=== PATIENT | female | born 1930 | race Caucasian/White ===

== ENCOUNTER 2016-08-26 18:16 | Observation (INO) | payer MEDICARE, OTHER ==
[~2016-08-26] VITALS: Ht 165.1 cm; Wt 75.0 kg
[2016-08-26 18:19] VITALS: BP 172/131; PULSE 89; RESP 18; TEMP 98.9; O2SAT 96
[2016-08-26 18:22] VITALS: BP 172/131; PULSE 89; RESP 18; O2SAT 96
[2016-08-26 18:25] VITALS: BP 176/77; PULSE 87; RESP 18; O2SAT 96; O2SAT 97
[2016-08-26] MEDS ORDERED: SODIUM CHLORIDE 0.9% FLUSH 5 ML FLUSH IVF PRN ×2 (18:30→21:00)
--- NOTE | 2016-08-26 18:49 | PD ---
HPI Chief Complaint: Chest Pain Time Seen by Provider: 18:20 Travel History International Travel<30 days: No Contact w/Intl Traveler<30days: No Traveled to known affect area: No History of Present Illness HPI 86yo F with PMH of HLD, dementia presents to the ED with c/o left chest pain today. Pain is left sided, constant and nonradiating. States it hurts more when you press on it. Denies any sob, n/v, abdominal pain, focal weakness or numbness. Pt is AAOx2 and denies any trauma. No signs of trauma. PFSH Past Medical History Alzheimer's Disease: Yes ?: Not Social History Alcohol Use: No Tobacco Use: No Substance Use: No Allergies-Medications (Allergen,Severity, Reaction): Coded Allergies: No Known Allergies (Unverified , 08/26/16) Reported Meds & Prescriptions Reported Meds & Active Scripts Active Reported Donepezil 10 Mg Tab 10 Mg PO HS Atorvastatin (Atorvastatin Calcium) 80 Mg Tab 80 Mg PO HS Memantine 10 Mg Tab 10 Mg PO BID Citalopram (Citalopram Hydrobromide) 20 Mg Tab 20 Mg PO DAILY Review of Systems Except as stated in HPI: all other systems reviewed are Neg Physical Exam Narrative GENERAL: 86yo F not in distress. SKIN: Warm and dry. HEAD: Atraumatic. Normocephalic. EYES: Pupils equal and round. No scleral icterus. No injection or drainage. ENT: No nasal bleeding or discharge. Mucous membranes pink and moist. NECK: Trachea midline. No JVD. CARDIOVASCULAR: Regular rate and rhythm. No murmur appreciated. RESPIRATORY: No accessory muscle use. Clear to auscultation. Breath sounds equal bilaterally. GASTROINTESTINAL: Abdomen soft, non-tender, nondistended. MUSCULOSKELETAL: No obvious deformities. No clubbing. No cyanosis. No edema. NEUROLOGICAL: Awake and alert. AAOx2. No obvious cranial nerve deficits. Motor grossly within normal limits. Normal speech. Data Data Last Documented VS Vital Signs Date Time Temp Pulse Resp B/P Pulse Ox O2 Delivery O2 Flow Rate FiO2 08/26/16 18:25 87 18 176/77 96 Room Air 08/26/16 18:19 98.9 Orders Basic Metabolic Panel (Bmp) (08/26/16 18:24) Ckmb (Isoenzyme) Profile (08/26/16 18:24) Complete Blood Count With Diff (08/26/16 18:24) Magnesium (Mg) (08/26/16 18:24) Prothrombin Time / Inr (Pt) (08/26/16 18:24) Act Partial Throm Time (Ptt) (08/26/16 18:24) Troponin I (08/26/16 18:24) Chest, Single Ap (08/26/16 18:24) Ecg Monitoring (08/26/16 18:24) Bilateral Bp Monitoring (08/26/16 18:24) Iv Access Insert/Monitor (08/26/16 18:24) Oximetry (08/26/16 18:24) Oxygen Administration (08/26/16 18:24) Sodium Chloride 0.9% Flush (Ns Flush) (08/26/16 18:30) Activity Bed Rest With Brp (08/26/16 20:55) Vital Signs (Adult) Q4H (08/26/16 20:55) Cardiac Rhythm .As Directed (08/26/16 20:55) ^ Notify Dr: Other .PRN (08/26/16 20:55) ^ Notify DrSravan Parameters (08/26/16 20:55) Resp Oxygen Nasal Cannula (08/26/16 ) Ckmb (Isoenzyme) Profile (08/26/16 20:55) Ckmb (Isoenzyme) Profile (08/26/16 23:55) Troponin I (08/26/16 20:55) Troponin I (08/26/16 23:55) Electrocardiogram (08/26/16 20:55) Electrocardiogram (08/26/16 23:55) ^ Obtain (08/26/16 20:55) Sodium Chloride 0.9% Flush (Ns Flush) (08/26/16 21:00) Sodium Chloride 0.9% Flush (Ns Flush) (08/26/16 21:00) [employer] Teacher / Telemetry [email or web address] (08/26/16 20:55) Admit Order (Ed Use Only) (08/26/16 20:55) Labs Laboratory Tests Test 08/26/16 18:35 White Blood Count 8.7 TH/MM3 Red Blood Count 4.36 MIL/MM3 Hemoglobin 13.2 GM/DL Hematocrit 39.7 % Mean Corpuscular Volume 91.2 FL Mean Corpuscular Hemoglobin 30.3 PG Mean Corpuscular Hemoglobin 33.2 % Concent Red Cell Distribution Width 13.3 % Platelet Count 191 TH/MM3 Mean Platelet Volume 9.5 FL Neutrophils (%) (Auto) 66.2 % Lymphocytes (%) (Auto) 26.0 % Monocytes (%) (Auto) 5.9 % Eosinophils (%) (Auto) 1.4 % Basophils (%) (Auto) 0.5 % Neutrophils # (Auto) 5.8 TH/MM3 Lymphocytes # (Auto) 2.3 TH/MM3 Monocytes # (Auto) 0.5 TH/MM3 Eosinophils # (Auto) 0.1 TH/MM3 Basophils # (Auto) 0.0 TH/MM3 CBC Comment DIFF FINAL Differential Comment Prothrombin Time 9.8 SEC Prothromb Time International 0.9 RATIO Ratio Activated Partial 26.4 SEC Thromboplast Time Sodium Level 143 MEQ/L Potassium Level 3.9 MEQ/L Chloride Level 107 MEQ/L Carbon Dioxide Level 30.0 MEQ/L Anion Gap 6 MEQ/L Blood Urea Nitrogen 17 MG/DL Creatinine 1.00 MG/DL Estimat Glomerular Filtration 53 ML/MIN Rate Random Glucose 107 MG/DL Calcium Level 8.8 MG/DL Magnesium Level 1.9 MG/DL Total Creatine Kinase 81 U/L Troponin I LESS THAN 0.02 NG/ML MDM Medical Decision Making Medical Screen Exam Complete: Yes Emergency Medical Condition: Yes Interpretation(s) EKG: NSR 78bpm. Normal axis. No ST segment elevation or depression. Laboratory Tests Test 08/26/16 18:35 White Blood Count 8.7 TH/MM3 (4.0-11.0) Red Blood Count 4.36 MIL/MM3 (4.00-5.30) Hemoglobin 13.2 GM/DL (11.6-15.3) Hematocrit 39.7 % (35.0-46.0) Mean Corpuscular Volume 91.2 FL (80.0-100.0) Mean Corpuscular Hemoglobin 30.3 PG (27.0-34.0) Mean Corpuscular Hemoglobin 33.2 % Concent (32.0-36.0) Red Cell Distribution Width 13.3 % (11.6-17.2) Platelet Count 191 TH/MM3 (150-450) Mean Platelet Volume 9.5 FL (7.0-11.0) Neutrophils (%) (Auto) 66.2 % (16.0-70.0) Lymphocytes (%) (Auto) 26.0 % (9.0-44.0) Monocytes (%) (Auto) 5.9 % (0.0-8.0) Eosinophils (%) (Auto) 1.4 % (0.0-4.0) Basophils (%) (Auto) 0.5 % (0.0-2.0) Neutrophils # (Auto) 5.8 TH/MM3 (1.8-7.7) Lymphocytes # (Auto) 2.3 TH/MM3 (1.0-4.8) Monocytes # (Auto) 0.5 TH/MM3 (0-0.9) Eosinophils # (Auto) 0.1 TH/MM3 (0-0.4) Basophils # (Auto) 0.0 TH/MM3 (0-0.2) CBC Comment DIFF FINAL Differential Comment Prothrombin Time 9.8 SEC (9.8-11.6) Prothromb Time International 0.9 RATIO Ratio Activated Partial 26.4 SEC Thromboplast Time (24.3-30.1) Sodium Level 143 MEQ/L (136-145) Potassium Level 3.9 MEQ/L (3.5-5.1) Chloride Level 107 MEQ/L (98-107) Carbon Dioxide Level 30.0 MEQ/L (21.0-32.0) Anion Gap 6 MEQ/L (5-15) Blood Urea Nitrogen 17 MG/DL (7-18) Creatinine 1.00 MG/DL (0.50-1.00) Estimat Glomerular Filtration 53 ML/MIN (>89) Rate Random Glucose 107 MG/DL (74-106) Calcium Level 8.8 MG/DL (8.5-10.1) Magnesium Level 1.9 MG/DL (1.5-2.5) Total Creatine Kinase 81 U/L (26-192) Troponin I LESS THAN 0.02 NG/ML (0.02-0.05) Last Impressions Chest X-Ray 08/26/16 2145 Signed Impressions: Service Date/Time: Friday, August 26, 2016 19:14 - CONCLUSION: No acute disease. Jed Serrato MD Differential Diagnosis Atypical chest pain vs. ACS vs. pneumonia Narrative Course 86yo F with c/o left sided chest pain. As per her son who is the power of trademark attorney, she has not had similar chest pain or recent chest pain work up before. Pt does have dementia and is AAox2. She is at baseline mental status as per son. Although chest pain sounds atypical, pt is an elderly woman with HLD and has history of dementia so ACS may present in an atypical way. Labs reviewed, no leukocytosis. Troponin negative. CXR showed no acute disease. Will admit to chest pain center for serial EKG and cardiac enzymes. Diagnosis Primary Impression: Chest pain Qualified Code: R07.9 - Chest pain, unspecified type Admitting Information Admitting Physician Requests: Observation Angella Lee DO Aug 26, 2016 18:49 Angella Lee DO Aug 26, 2016 18:49
[2016-08-26 19:13] LABS: AUTOMATED NEUTROPHIL # 5.8 TH/MM3 (1.8-7.7); BASOPHIL % 0.5 % (0.0-2.0); EOSINOPHIL # 0.1 TH/MM3 (0-0.4); EOSINOPHIL % 1.4 % (0.0-4.0); HEMATOCRIT 39.7 % (35.0-46.0); HEMO FLAGS DIFF FINAL; LYMPHOCYTE # 2.3 TH/MM3 (1.0-4.8); MEAN CELL VOLUME 91.2 FL (80.0-100.0); MEAN CORPUSCULAR HEMOGLOBIN 30.3 PG (27.0-34.0); MEAN CORPUSCULAR HGB CONC 33.2 % (32.0-36.0); MONO % 5.9 % (0.0-8.0); NEUT % 66.2 % (16.0-70.0); PLATELET COUNT 191 TH/MM3 (150-450); RED BLOOD COUNT 4.36 MIL/MM3 (4.00-5.30); RED CELL DISTRIBUTION WIDTH 13.3 % (11.6-17.2); WHITE BLOOD COUNT 8.7 TH/MM3 (4.0-11.0)
[2016-08-26 19:16] LABS: APTT (PATIENT) 26.4 SEC (24.3-30.1); INTERNATIONAL NORMALIZED RATIO 0.9 RATIO; PROTHROMBIN TIME - PATIENT 9.8 SEC (9.8-11.6)
[2016-08-26] MEDS ORDERED: DONE10TA7 PO (19:25)
[2016-08-26] MEDS ORDERED: MEMA1TAB2 PO (19:25)
[2016-08-26] MEDS ORDERED: CITA20TA4 PO (19:25)
[2016-08-26] MEDS ORDERED: ATOR1TAB18 PO (19:25)
[2016-08-26 19:31] LABS: ANION GAP 6 MEQ/L (5-15); BLOOD UREA NITROGEN 17 MG/DL (7-18); CHLORIDE 107 MEQ/L (98-107); GLOMERULAR FILTRATION RATE 53 ML/MIN (>89); MAGNESIUM 1.9 MG/DL (1.5-2.5); POTASSIUM 3.9 MEQ/L (3.5-5.1); SODIUM (NA) 143 MEQ/L (136-145)
[2016-08-26 19:37] LABS: CREATINE KINASE 81 U/L (26-192)
--- NOTE | 2016-08-26 19:59 | RADRPT ---
EXAM DATE/TIME: 08/26/2016 19:14 [facility] COMPARISON: No previous studies available for comparison. INDICATIONS : Chest pain. MEDICAL HISTORY : None. SURGICAL HISTORY : None. ENCOUNTER: Initial ACUITY: 1 day PAIN SCORE: 5/10 LOCATION: Bilateral chest FINDINGS: A single view of the chest demonstrates the lungs to be symmetrically aerated without evidence of mas s, infiltrate or effusion. The cardiomediastinal contours are unremarkable. Atherosclerotic calcific ations are present in the aorta. Osseous structures are intact. CONCLUSION: No acute disease. Jed Serrato MD on August 26, 2016 at 19:58 Board Certified Radiologist. This report was verified electronically.
[2016-08-26 22:13] VITALS: O2SAT 97
[2016-08-26] MEDS: SODIUM CHLORIDE 0.9% FLUSH 5 ML FLUSH IVF SCH (22:25)
[2016-08-26 23:59] VITALS: BP 171/72; PULSE 72; RESP 20; O2SAT 100
[2016-08-27] VITALS (7 sets, daily range): BP systolic 145–180; BP diastolic 65–79; PULSE 58–80; RESP 18–20; TEMP 98–99.2; O2SAT 92–98
[2016-08-27] MEDS ORDERED: ASPIRIN 325 MG TAB PO ONE (00:30)
[2016-08-27 00:43] LABS: CREATINE KINASE 74 U/L (26-192)
[2016-08-27 03:54] LABS: CREATINE KINASE 77 U/L (26-192)
[2016-08-27] MEDS: SODIUM CHLORIDE 0.9% FLUSH 5 ML FLUSH IVF SCH (09:00)
[2016-08-27] MEDS ORDERED: amLODIPine BESYLATE 5 MG TAB PO SCH (09:00)
--- NOTE | 2016-08-27 10:49 | HHI.HP ---
HPI Primary Care Physician Octavio Jin MD Chief Complaint Chest pain History of Present Illness This is an 86-year-old female that presents to ED complaining of chest discomfort. She states it occurred yesterday while at rest. She cannot recall having symptoms like this before. Does not really recall how long it lasted but it is not at this time. No shortness breath nausea or vomiting. No diaphoresis. Review of Systems General: Patient denies fevers, chills recent, and recent travel HEENT: Patient denies headache, sore throat, difficulty swallowing. Cardiovascular: Has the chest discomfort as mentioned above. Denies sensation of heart beating rapidly or irregularly. No syncope. Denies diaphoresis. Respiratory: Denies shortness of breath or inspirational chest discomfort. Denies coughing wheezing or hemoptysis. GI: Patient denies nausea, vomiting, diarrhea, abdominal pain, bloody stools. Musculoskeletal: Patient denies joint pain or edema. Denies calf pain or edema. Neurovascular: Patient denies numbness, tingling, weakness in extremities. Denies headache. Endocrine: Denies polyuria and polydipsia. Hematologic: Denies easy bruising. Skin: Denies rash or itching. Past Family Social History Allergies: Coded Allergies: No Known Allergies (Unverified , 08/26/16) Past Medical History Hyperlipidemia, hypertension, dementia. Denies diabetes and known CAD. Past Surgical History Noncontributory. Reported Medications Reported Meds & Active Scripts Active Reported Donepezil 10 Mg Tab 10 Mg PO HS Atorvastatin (Atorvastatin Calcium) 80 Mg Tab 80 Mg PO HS Memantine 10 Mg Tab 10 Mg PO BID Citalopram (Citalopram Hydrobromide) 20 Mg Tab 20 Mg PO DAILY Active Ordered Medications Current Medications Medications (Trade) Dose Ordered Sig/Stefano Route Start Time Stop Time Status Last Admin (NS Flush) 2 ml UNSCH PRN IVF 08/26/16 21:00 (NS Flush) 2 ml BID IVF 08/26/16 21:00 08/26/16 22:25 (Norvasc) 5 mg DAILY PO 08/27/16 09:00 Family History Patient is unaware of coronary disease in her family. Social History Patient does not smoke, drink alcohol, or use illicit drugs. Physical Exam Vital Signs Vital Signs Date Time Temp Pulse Resp B/P Pulse Ox O2 Delivery O2 Flow Rate FiO2 08/27/16 07:28 98.0 80 20 153/67 97 08/27/16 04:00 172/76 08/27/16 03:19 98.0 70 18 180/79 97 08/27/16 02:16 58 08/26/16 23:59 72 20 171/72 100 08/26/16 22:13 97 08/26/16 18:25 87 18 176/77 96 Room Air 08/26/16 18:25 97 Room Air 08/26/16 18:25 97 Room Air 08/26/16 18:22 89 18 172/131 96 Room Air 08/26/16 18:19 98.9 89 18 172/131 96 Physical Exam GENERAL: This is a well-nourished, well-developed patient, in no apparent distress. Patient speaks in clear complete sentences. Patient is pleasant. HEENT: Head is atraumatic and normocephalic. Neck is supple without lymphadenopathy and trachea is midline. No JVD or carotid bruits. CARDIOVASCULAR: Grade 2 systolic murmur left sternal border. Regular rate and rhythm without gallops, or rubs. RESPIRATORY: Clear to auscultation. Breath sounds equal bilaterally. No wheezes , rales, or rhonchi. Chest wall is nontender. No use of accessory muscles. GASTROINTESTINAL: Abdomen is nontender, nondistended. Abdomen soft. No obvious pulsatile mass or bruit. No CVA tenderness. Strong femoral pulses bilaterally. Normal bowel sounds in all quadrants. MUSCULOSKELETAL: Patient is moving upper and lower extremities freely. No calf tenderness or edema, no Homans sign. Strong pulses in upper and lower extremities. NEUROLOGICAL: Patient is alert and oriented. Cranial nerves 2-12 are grossly intact. No focal deficits and speech is clear. SKIN: No rash and turgor is normal. Laboratory Laboratory Tests Test 08/26/16 08/26/16 08/27/16 18:35 23:50 03:00 White Blood Count 8.7 Red Blood Count 4.36 Hemoglobin 13.2 Hematocrit 39.7 Mean Corpuscular Volume 91.2 Mean Corpuscular Hemoglobin 30.3 Mean Corpuscular Hemoglobin 33.2 Concent Red Cell Distribution Width 13.3 Platelet Count 191 Mean Platelet Volume 9.5 Neutrophils (%) (Auto) 66.2 Lymphocytes (%) (Auto) 26.0 Monocytes (%) (Auto) 5.9 Eosinophils (%) (Auto) 1.4 Basophils (%) (Auto) 0.5 Neutrophils # (Auto) 5.8 Lymphocytes # (Auto) 2.3 Monocytes # (Auto) 0.5 Eosinophils # (Auto) 0.1 Basophils # (Auto) 0.0 CBC Comment DIFF FINAL Differential Comment Prothrombin Time 9.8 Prothromb Time International 0.9 Ratio Activated Partial 26.4 Thromboplast Time Sodium Level 143 Potassium Level 3.9 Chloride Level 107 Carbon Dioxide Level 30.0 Anion Gap 6 Blood Urea Nitrogen 17 Creatinine 1.00 Estimat Glomerular Filtration 53 Rate Random Glucose 107 Calcium Level 8.8 Magnesium Level 1.9 Total Creatine Kinase 81 74 77 Troponin I LESS THAN 0.02 LESS THAN 0.02 LESS THAN 0.02 Result Diagram: 08/26/16183408/26/161834 Imaging Last 24 hours Impressions Chest X-Ray 08/26/164 Signed Impressions: Service Date/Time: Friday, August 26, 2016 19:14 - CONCLUSION: No acute disease. Jed Serrato MD Course EKGs have sinus rhythm without significant ST segment depressions or elevations. Assessment and Plan Assessment and Plan * Chest pain: Patient had serial cardiac enzymes and EKGs for ruling out purposes. She has been seen by Dr. Linder cardiology and the chest pain center and will undergo a Lexiscan. She will likely be discharged home if her stress test were to be nonischemic. * Hypertension: Patient is not believes she has been taking medications recently. She was hypertensive. We'll start the patient on amlodipine. * Hyperlipidemia: Continue current medication. * Dementia: Continue current medication. Patient is stable at this time. She is agreeable to this plan. Waqar Blank Aug 27, 2016 10:49
[2016-08-27] MEDS ORDERED: REGADENOSON INJ 0.4 MG/5 ML SYR ONE (11:01)
--- NOTE | 2016-08-27 12:27 | RADRPT ---
EXAM DATE/TIME: 08/27/2016 10:39 [facility] COMPARISON: No previous studies available for comparison. INDICATIONS : Left sided chest pain for 1 day. Angina. DOSE: 26.1 mCi Tc99m Myoview at stress. 8.2 mCi Tc99m Myoview at rest. 0.4 mg Lexiscan STRESS SYMPTOMS: Shortness of breath. EJECTION FRACTION: 64% MEDICAL HISTORY : Dementia. Alzheimer's. Hypercholesterolemia. SURGICAL HISTORY : None. ENCOUNTER: Initial ACUITY: 1 day PAIN SCALE: 3/10 LOCATION: Left chest TECHNIQUE: The patient underwent pharmacologic stress with infusion of prescribed dose. Continuous ECG tracing was monitored during stress. Gated SPECT imaging was performed after stress and conventional SPECT i maging was performed at rest. The examination was performed on a SPECT/CT scanner, both attenuation and non-corrected datasets were reviewed. FINDINGS: DISTRIBUTION: The maximum perfused segment at stress is in the lateral wall. PERFUSION STUDY: The pattern of perfusion at stress is within normal limits. GATED STUDY: There is intact wall motion and thickening without hypokinetic or dyskinetic segments. CONCLUSION: No areas of ischemia are seen. RISK CATEGORY: Low (<1% Annual Mortality Rate) Marco Che MD on August 27, 2016 at 12:24 Board Certified Radiologist. This report was verified electronically.
[2016-08-27] MEDS ORDERED: AMLO5 PO (12:43)
--- NOTE | 2016-08-27 12:44 | HHI.DCPOC ---
Discharge Care Plan Diagnosis: (1) Chest pain (2) Hypertension (3) Hyperlipidemia Goals to Promote Your Health * To prevent worsening of your condition and complications * To maintain your health at the optimal level Directions to Meet Your Goals Take your medications as prescribed Follow your dietary instruction Follow activity as directed Keep your appointments as scheduled Take your immunizations and boosters as scheduled If your symptoms worsen call your PCP, if no PCP go to Urgent Care Center or Emergency Room Smoking is Dangerous to Your Health. Avoid second hand smoke Call the 24-hour hour crisis hotline for domestic abuse at Waqar Blank Aug 27, 2016 12:44
--- NOTE | 2016-08-27 16:36 | TR ---
Date Performed: 08/27/2016 Time Performed: 11:08:11 DOCTOR: Alison Linder DRUG LIST: CLINICAL HISTORY: ANGINA REASON FOR TEST: Angina REASON FOR ENDING: OBSERVATION: CONCLUSION: Lexiscan stress test was performed under standard four minute protocol. Radionuclid e was injected one minute prior to ending the test. No electrocardiographic abormalities were present to suggest ischemia. Nuclear imaging and interpretation are pending. COMMENTS:
--- NOTE | 2016-08-27 16:45 | EKG ---
Date Performed: 08/26/2016 Time Performed: 16:25:24 PTAGE: 86 years EKG: Sinus rhythm NORMAL ECG NO PREVIOUS TRACING DOCTOR: Alison Linder Interpretating Date/Time 08/27/2016 16:45:00
--- NOTE | 2016-08-27 19:51 | EKG ---
Date Performed: 08/27/2016 Time Performed: 03:06:08 PTAGE: 86 years EKG: Sinus rhythm NORMAL ECG PREVIOUS TRACING : 08/26/2016 21.33 Compared to prior tracing no significant change DOCTOR: Vance Lopez Interpretating Date/Time 08/27/2016 19:50:26
--- NOTE | 2016-08-27 20:00 | EKG ---
Date Performed: 08/26/2016 Time Performed: 21:33:32 PTAGE: 86 years EKG: Sinus rhythm NORMAL ECG PREVIOUS TRACING : 08/26/2016 16.25 Compared to prior tracing no significant change DOCTOR: Vance Lopez Interpretating Date/Time 08/27/2016 19:59:05
== END 2016-08-27 15:22 | disposition home or self-care (01) ==
LOC: NEPA 18:16 → NEDA 20:56 → NEPFCDU 08-27 01:47
PROVIDERS: ADMIT Internal Medicine Interventional Cardiology; ATTEND Internal Medicine Interventional Cardiology
DX: R07.9 Chest pain, unspecified (principal); I10 Essential (primary) hypertension; E78.5 Hyperlipidemia, unspecified; G30.9 Alzheimer's disease, unspecified; F02.80 Dementia in other diseases classified elsewhere, unspecified severity, without behavioral disturbance, psychotic disturbance, mood disturbance, and anxiety; E78.00 Pure hypercholesterolemia, unspecified
CPT/HCPCS: 71010; 78452; 80048; 82550; 83735; 84484; 85025; 85610; 85730; 93005; 93017; 99285; A9502; G0378; J2785